=== PATIENT | female | born 1950 | race Caucasian/White ===

== ENCOUNTER → 2016-12-27 | Outpatient (CLI) | payer OTHER ==
[~2016-12-27] MED LIST: ACET-1311 PO; BIMA0.01 OP; CIPR-255 PO; DIPH25CA65 PO; DTR/5 PO; NAPR1TAB9 PO; OPTIRAY 300 IV PRN; RANI150T3 PO
--- NOTE | 2016-12-28 13:25 | DIAGNOSTIC IMAGING REPORT ---
IVP W/OR W/O TOMOGRAMS CLINICAL HISTORY: N28.89 Ureteral lesion, [place], [id number] Hydronephrosis of rib hydronephrosis COMPARISON STUDY: 05/06/2016 FINDINGS: Survey film of the abdomen shows urinary tracts to be unremarkable. No abnormal calcifications are identified. Right kidney is smaller as compared to the left this is unchanged. This study is performed following the intravenous injection of 100 cc nonionic contrast. There is prompt opacification of both urinary tracts. Tomographic sections are negative for hydronephrosis. Right ureter is slightly smaller in caliber as compared to left but is unchanged from the prior exam. Bladder is midline. No significant post void residual. IMPRESSION: 1. No evidence for hydronephrosis. 2. Mild atrophic right kidney although this is unchanged from the prior study. 3. Both ureters are patent with the right ureter is slightly smaller in caliber as compared to the left. 4. No evidence for stenotic or obstructing process. Electronically signed by: Clyde Pollock M.D. 12/28/2016 1:23 PM Dictated Date/Time: 12/28/2016 1:04 PM
== END | disposition home or self-care (01) ==
LOC: C.RAD 12:35
PROVIDERS: ATTEND Urology
DX: N13.30 Unspecified hydronephrosis (principal); N28.89 Other specified disorders of kidney and ureter

== ENCOUNTER → 2017-11-27 | Outpatient (CLI) | payer OTHER ==
[~2017-11-27] MED LIST changes: -OPTIRAY 300 IV PRN
== END | disposition home or self-care (01) ==
LOC: C.PAPS 10:16
PROVIDERS: ATTEND Obstetrics & Gynecology
DX: Z01.419 Encounter for gynecological examination (general) (routine) without abnormal findings (principal)